=== PATIENT | female | born 1970 | race Caucasian/White ===

== ENCOUNTER 2024-05-10 04:37 | Day surgery (SDC) | payer OTHER ==
[2024-05-10 05:10] LABS: BASOPHILS ABSOLUTE AUTO 0.03 K/uL (0.00-0.10); BASOPHILS PERCENT AUTO 0.2 % (0.1-1.3); EOSINOPHILS ABSOLUTE AUTO 0.12 K/uL (0.00-0.40); EOSINOPHILS PERCENT AUTO 0.9 % (0.0-5.4); HEMATOCRIT 39.5 % (34.3-46.0); HEMOGLOBIN 14.1 g/dL (11.2-15.5); IMMATURE GRAN ABSOLUTE AUTO 0.04 K/uL (0.00-0.23); IMMATURE GRAN PERCENT AUTO 0.3 % (0.0-0.7); LYMPHOCYTES ABSOLUTE AUTO 2.35 K/uL (0.8-3.3); LYMPHOCYTES PERCENT AUTO 18.5 % (11.4-47.7); MEAN CORPUSCULAR HEMOGLOBIN 30.9 pg (31.6-35.5); MEAN CORPUSCULAR HGB CONC 35.7 g/dL (31.6-35.5); MEAN CORPUSCULAR VOLUME 86.4 fL (81.4-99.0); MONOCYTES ABSOLUTE AUTO 0.69 K/uL (0.20-0.90); MONOCYTES PERCENT AUTO 5.4 % (3.3-12.6); NEUTROPHILS PERCENT AUTO 74.7 % (40.0-78.1); PLATELET COUNT,PLT 292 K/uL (130-375); RED BLOOD CELL COUNT 4.57 M/uL (3.77-5.24); WHITE BLOOD CELL COUNT,WBC 12.7 K/uL (3.2-11.0)
[2024-05-10 05:16] LABS: BILIRUBIN,URINE NEGATIVE (NEGATIVE); COLOR,URINE YELLOW (YELLOW); GLUCOSE,URINE NEGATIVE (NEGATIVE); KETONES,URINE NEGATIVE (NEGATIVE); LEUKOCYTE ESTERASE,URINE TRACE (NEGATIVE); NITRITE,URINE NEGATIVE (NEGATIVE); OCCULT BLOOD,URINE NEGATIVE (NEGATIVE); PROTEIN,URINE NEGATIVE (NEGATIVE); UROBILINOGEN,URINE 0.2 EU/dL (0.2-1.0)
[2024-05-10 05:21] LABS: AMORPHOUS SEDIMENT,URINE NOT SEEN; APPEARANCE,URINE SLIGHTLY CLOUDY (CLEAR); BACTERIA,URINE FEW; EPITHELIAL CELLS,URINE RARE; MUCUS,URINE RARE; RBC,URINE 0-5 (0-5)
[2024-05-10 05:30] LABS: ALANINE AMINOTRANSFERASE,ALT 24 U/L (12-78); ALBUMIN 3.8 g/dL (3.4-5.0); ALKALINE PHOSPHATASE 89 U/L (46-116); ASPARTATE AMNIOTRANSFERASE,AST 21 U/L (15-37); BLOOD UREA NITROGEN,BUN 18 mg/dL (7-18); CALCIUM 9.3 mg/dL (8.5-10.1); CARBON DIOXIDE,CO2 24 mmol/L (21-32); CHLORIDE,CL 102 mmol/L (100-108); CREATININE 0.9 mg/dL (0.6-1.0); ESTIMATED GFR 76 mL/min (>60); GLUCOSE RANDOM 133 mg/dL (74-106); POTASSIUM,K 3.5 mmol/L (3.6-5.2); PROTEIN TOTAL,TP 7.8 g/dL (6.4-8.2); SODIUM,NA 138 mmol/L (140-148)
[2024-05-10 05:32] LABS: ANION GAP 15.5 mmol/L (5.0-14.0)
[2024-05-10] MEDS: Sodium Chloride 0.9% 80 ML IV STA (05:57)
[2024-05-10] MEDS: Iopamidol 612 MG/ML 100 ML Bottle IV STA (05:57)
[2024-05-10] MEDS: Sodium Chloride 0.9% 10 ML Syringe FLUSH PRN (06:09)
[2024-05-10] MEDS: Lactated Ringers 1,000 ML IV SCH (06:09)
[2024-05-10] MEDS ORDERED: Ampicillin/Sulbactam Na 3 GM in Sodium Chloride 0.9% 100 ML IV ONE (07:06)
[2024-05-10] MEDS ORDERED: Neostigmine Methylsulfate 10 MG/10 ML MDV ONE (09:00)
[2024-05-10] MEDS ORDERED: Glycopyrrolate 0.2 MG/ML 5 ML MDV ONE (09:00)
[2024-05-10] MEDS ORDERED: Ondansetron 4 MG/2 ML SDV ONE (09:00)
[2024-05-10] MEDS ORDERED: Rocuronium 50 MG/5 ML Vial ONE (09:00)
[2024-05-10] MEDS ORDERED: Dexamethasone 4 MG/ML SDV ONE (09:00)
[2024-05-10] MEDS ORDERED: Propofol 200 MG/20 ML SDV ONE (09:00)
[2024-05-10] MEDS ORDERED: fentaNYL 250 MCG/5 ML SDV ONE (09:00)
[2024-05-10] MEDS: Ampicillin/Sulbactam Na 3 GM in Sodium Chloride 0.9% 100 ML IV ONE (09:55)
[2024-05-10] MEDS ORDERED: Ketorolac 30 MG/ML SDV ONE (10:04)
[2024-05-10] MEDS: Bupivacaine 0.25%/EPINEPHrine 1:200,000 30 ML SDV ONE (10:41)
[2024-05-10] MEDS: traMADol 50 MG Tab PO PRN (12:19)
[2024-05-10 12:24] VITALS: BP 108/66; PULSE 62
== END 2024-05-10 13:30 | disposition home or self-care (01) ==
LOC: JP.ED 04:37 → JP.SDS 07:29
PROVIDERS: ATTEND Surgery
DX: K35.30 Acute appendicitis with localized peritonitis, without perforation or gangrene (principal); Z88.5 Allergy status to narcotic agent
CPT/HCPCS: 00840; 36415; 74177; 80053; 81001; 83605; 83690; 84703; 85025; 99285; A9270; J0295; J1100; J1885; J2405; J2704; J2710; J3010; J3490; J7120; Q9967; 88304